=== PATIENT | female | born 2005 | race Caucasian/White ===

== ENCOUNTER 2024-01-28 15:13 | Emergency (ER) | payer OTHER, SELFPAY ==
[2024-01-28 15:23] VITALS: BP 103/73
--- NOTE | 2024-01-28 17:39 | ED.GENMED ---
History of Present Illness
General
Chief Complaint: Back Pain
Source: patient
Exam Limitations: none
Time Seen by Provider: 01/28/24 17:31
Nursing documentation reviewed up to this point in time: agreed with
Travel History
Have you had any contact with someone who has COVID-19?: No
Do you have any symptoms of coronavirus? Fever > 100 degrees, chills, cough, shortness of breath, sore throat, loss of taste or smell, muscle aches, or headache?: No
History of Present Illness
History of Present Illness:
18 yr old female with PMH of anxiety tachycardia reflux and herniated disks diagnosed in her teens presents to the ER for evaluation of back pain. Patient reports she believes when she was 14 she was diagnosed with a herniated disc at L4-L5. This
morning she woke up with pain across lower back worse on the right side that radiates to bilateral legs. She has pain with sitting standing twisting laying down. She denies any loss of bowel or bladder. Denies any weakness or numbness. Denies
any recent injury/fevers/chills.
She took one 200 mg of Motrin at 3: 30pm. She denies any UTI s/s. Due for menses next week. denies on control.
Past History
Past History
ED Past Medical History: GERD
ED Past Surgical History: Other ([place] teeth extracted)
Social History
Tobacco: Non-smoker
Alcohol: None
Drug: None
Personal: Single
Employment: Student
Review of Systems
Review of Systems
Allergies reviewed?: Yes
All Other Systems: ROS reviewed and negative except as documented in HPI and ROS
Constitutional: Reports no symptoms; Denies fever
Respiratory: Reports no symptoms
Cardiac: Reports no symptoms
ABD/GI: Reports no symptoms
: Reports no symptoms
Musculoskeletal: Reports back pain
Skin: Reports no symptoms
Neurological: Denies numbness
Hematologic/Lymphatic: Reports no symptoms
Psychiatric: Reports no symptoms
Phy Exam
General Physical Exam
General Presentation: no apparent distress
General age: appears stated age
General Skin: warm and dry
General Habitus: normal
General Mental: alert
General Hydration: appears well hydrated
Neurological Exam
Neurological Exam: alert, oriented x3, no motor deficits, normal reflexs, no sensory deficits and other (Normal patellar reflexes)
Yoanna Coma Scale
Eye Opening: Spontaneous
Verbal Response: Oriented
Motor Response: Obeys Commands
GCS Total Score: 15
Musculoskeletal Exam
Musculoskeletal Exam: full ROM
Skin Exam
Skin Exam: normal color and warm/dry
Psychiatric Exam
Psychiatric Exam: normal mood/affect
Course
Orders/Labs/Results
Orders:
Orders
01/28/24 17:52
Dexamethasone Sod Phosphate [Decadron] 10 mg IM NOW STA
01/28/24 17:57
Acetaminophen [Tylenol] 650 mg PO NOW STA
Lidocaine [Lidocaine 4% Patch] 1 patch TOPICAL NOW STA
diazePAM [Valium Injection] 5 mg IM NOW STA
Vital Signs
Initial and Last Documented VS:
Initial Vital Signs
Temp Pulse Resp BP Pulse Ox
99.0 F 109 20 103/73 100
01/28/24 15:23 01/28/24 15:23 01/28/24 15:23 01/28/24 15:23 01/28/24 15:23
Last Documented Vital Signs
Temp Pulse Resp BP Pulse Ox
99.0 F 109 20 103/73 100
01/28/24 15:23 01/28/24 15:23 01/28/24 15:23 01/28/24 15:23 01/28/24 15:23
MDM/Problems Addressed
Differential Diagnosis Includes:
Not limited to sciatica
MDM/Problems Addressed:
Symptoms are consistent with sciatica. Patient no acute distress no neurological deficits has had back issues since she was a teenager. Patient was given Valium here along with Tylenol steroid lidocaine patch feeling much better. Will DC with
Flexeril steroid taper lidocaine patch with close outpatient follow-up family doctor orthopedics if needed
*Critical Care Note
Total Time (30-74mins, 75-104mins- exclusive of procedures): Not Applicable
ED Attending Note
-
Portions of this chart may have been created with voice recognition software.� Occasional wrong word or��sound alike� substitutions may have occurred due to the inherent limitations of voice recognition software.
Discharge Plan
Departure
Patient Disposition: Home (Routine Discharge)
Date of Disposition: 01/28/24
Time of Disposition: 19:25
Patient with high blood pressure during this ER visit?: No
Condition: Fair
Covid-19: Not Applicable
Discharge Problem:
Low back pain, Sciatica
Instructions: Low Back Pain (DC), Sciatica (DC)
Prescriptions:
New
cyclobenzaprine 10 mg tablet
10 mg PO TID PRN (Reason: muscle spasm) Qty: 10 0RF
prednisone 10 mg Tablet
See Rx Instructions .ROUTE .COMPLEX Qty: 30 0RF
Rx Instructions:
Take By Mouth:
40 mg daily x3 days, 30 mg daily x3 days,
20 mg daily x3 days, 10 mg daily x3 days.
lidocaine 5 % adhesive patch,medicated
1 patch topical DAILY PRN (Reason: pain) Qty: 15 0RF
Rx Instructions:
remove after 12 hrs
No Action
Manasa
10 ml PO BID
alprazolam 0.25 mg Tablet
0.25 mg PO PRN PRN (Reason: anxiety)
famotidine [Pepcid] 20 mg Tablet
40 mg PO DAILY
sertraline 25 mg Tablet
25 mg PO DAILY
diltiazem HCl 30 mg Tablet
60 mg PO DAILY
drospirenone-ethinyl estradiol [Lo-Zumandimine (28)] 3-0.02 mg Tablet
1 tab PO DAILY
sucralfate [Carafate] 1 gram tablet
1 g PO ACHS Qty: 30 0RF
sucralfate [Carafate] 100 mg/mL suspension
10 ml PO AC Qty: 200 0RF
phenazopyridine 100 mg tablet
100 mg PO TID PRN (Reason: Pain) Qty: 6 0RF
Referrals:
Ash Tirado MD [Active] -
Mine Salgado MD [Family Provider] -
Activity Restrictions/Additional Instructions:
As discussed avoid heavy lifting straining bending over. Prescriptions were sent to your pharmacy including a prescription for steroid taper take as directed. A prescription for muscle laxer was also sent to pharmacy take as directed every 8 hours
only as needed. This medication will cause drowsiness no driving or drinking alcohol taking this medication. Also do not take alprazolam while taking this medication. A prescription for lidocaine patch was also sent to your pharmacy to use as
directed remove after 12 hours. Follow-up with family doctor next several days and orthopedics if needed. Return if any worsening of symptoms
Discharge Date and Time
Print Language: SINHALA
[2024-01-28 18:00] VITALS: BP 119/76
[2024-01-28] MEDS: DECADRON 10 MG IM (18:06)
[2024-01-28] MEDS: TYLENOL 650 MG PO (18:06)
[2024-01-28] MEDS: VALIUM INJECTION 5 MG IM (18:06)
[2024-01-28] MEDS: LIDOCAINE 4% PATCH 1 PATCH TOPICAL (18:07)
[2024-01-28 19:46] VITALS: BP 128/69
== END 2024-01-28 19:48 | disposition home or self-care (01) ==
LOC: EMR 15:13
PROVIDERS: EMERGENCY PHYSICIAN Emergency Medicine; FAMILY PHYSICIAN Internal Medicine
DX: M54.40 Lumbago with sciatica, unspecified side (principal); M79.605 Pain in left leg; M79.604 Pain in right leg; R20.0 Anesthesia of skin; K21.9 Gastro-esophageal reflux disease without esophagitis; F41.9 Anxiety disorder, unspecified; R00.0 Tachycardia, unspecified; M51.25 Other intervertebral disc displacement, thoracolumbar region
CPT/HCPCS: 99284; 96372 ×2

== ENCOUNTER → 2024-08-16 14:01 | Outpatient (REF) | payer OTHER, SELFPAY | LOC: HWRAD 14:01 | PROVIDERS: ATTENDING PHYSICIAN Family Medicine | DX: M25.551 Pain in right hip (principal); M25.552 Pain in left hip | CPT/HCPCS: 73523 ==

== ENCOUNTER → 2025-03-02 11:14 | Outpatient (REF) | payer OTHER, SELFPAY | LOC: RAD 11:14 | PROVIDERS: ATTENDING PHYSICIAN Nurse Practitioner Obstetrics & Gynecology; FAMILY PHYSICIAN Family Medicine | DX: N94.10 Unspecified dyspareunia (principal) | CPT/HCPCS: 76830; 76856 ==